=== PATIENT | male | born 1975 | race Caucasian/White ===

== ENCOUNTER 2024-10-31 07:19 | Observation (INO) ==
[2024-10-31] MEDS: MAGNESIUM SULFATE 2 GRAM 2 GM/50 ML BAG IV ONE (07:35)
[2024-10-31] MEDS: SODIUM CHLORIDE 0.9% 1,000 ML IV STA ×2 (07:36→11:34)
[2024-10-31 07:40] LABS: BASOPHILS % (AUTO) 0.4 %; EOSINOPHILS % (AUTO) 0.3 %; HCT - HEMATOCRIT 42.5 % (42.0-52.0); HGB - HEMOGLOBIN 14.3 g/dL (14.0-18.0); LYMPHOCYTES # (AUTO) 1.3 10^3/uL (1.5-3.5); LYMPHOCYTES % (AUTO) 11.6 %; MEAN CORPUSCULAR HEMOGLOBIN 29.9 pg (27.0-31.0); MEAN CORPUSCULAR HGB CONC 33.6 g/dL (32.0-36.0); MEAN CORPUSCULAR VOLUME 88.9 fL (80.0-94.0); MEAN PLATELET VOLUME 8.8 fL (7.4-11.4); MONOCYTES # (AUTO) 0.8 10^3/uL (0.0-1.0); MONOCYTES % (AUTO) 7.4 %; NEUTROPHILS # (AUTO) 8.7 10^3/uL (1.5-6.6); NEUTROPHILS % (AUTO) 79.9 %; PLT - PLATELET COUNT 296 10^3/uL (130-450); RED BLOOD COUNT 4.78 10^6/uL (4.70-6.10); RED CELL DISTRIBUTION WIDTH 14.3 % (12.0-15.0); WHITE BLOOD COUNT 10.8 x10^3/uL (4.8-10.8)
--- NOTE | 2024-10-31 07:43 | ED Physician Documentation ---
History of Present Illness Stated complaint Stated Complaint: ASTHMA Chief complaint Chief Complaint: Resp History obtained from History obtained from: Patient History of Present Illness Pain level max: 0 Pain level now: 0 Additonal information Additional information: 49 year old male with a history of asthma/COPD. Monserrat quit smoking last month. No fevers but has had a cough. States uses an inhaler. Received 2 Duoneb treatments, an albuterol treatment and 125mg solumedrol en route. was hypoxic initially with EMS states that he is feeling better after treatment but is still having increased work of breathing. Has had chills. No abdominal pain, nausea or vomiting. Review of Systems Constitutional Denies: Fever or Chills Ears, nose, mouth, and throat Denies: Ear pain or Neck pain Cardiovascular Denies: chest pain Respiratory Reports: Cough and Wheezing Gastrointestinal Denies: Abdominal pain, Nausea or Vomiting Musculoskeletal Denies: Back pain or Neck pain Integumentary/Breast Denies: Rash Allergic/Immunologic Reports: Wheezing Meds/Allgy Home Medications Ambulatory Orders Medication Instructions Recorded Confirmed cyclobenzaprine 10 mg tablet 10 mg PO TID PRN Spasms 08/11/13 10/31/24 hydrocodone 5 mg-acetaminophen 325 1 - 2 ea PO Q6H PRN Pain #15 tabs 08/11/13 10/31/24 mg tablet albuterol sulfate 90 mcg/actuation 1 - 2 puff inhalation Q4H PRN 10/31/24 10/31/24 aerosol inhaler shortness of breath or wheezing cetirizine 10 mg tablet 10 mg PO DAILY 10/31/24 10/31/24 fluticasone propionate 50 2 spray intranasal DAILY PRN 10/31/24 10/31/24 mcg/actuation nasal allergy symptoms spray,suspension Allergies Allergies Allergy/AdvReac Type Severity Reaction Status Date / Time codeine (Codeine) Allergy Intermediate Itching Verified 10/31/24 07:32 ibuprofen (From Motrin) Allergy Intermediate Hives Verified 10/31/24 07:32 PFS Medical History Medical History (Updated 10/31/24 @ 17:45 by Josh Pickering MD) Sinusitis Chronic back pain Asthma Surgical History Surgical History (Updated 10/13/24 @ 01:06 by ELISE Eddy) No pertinent past surgical history Social History Social History (Updated 10/13/24 @ 01:06 by Beatrice Merlos, ELISE) Smoking Status: Former smoker Living Condition: With family Relationship: Physical Activity: Walking Level: Independent Do you feel safe in your home environment?: Yes Suffered physical, verbal, emotional, or financial abuse?: No History of Abuse: No ETOH Use: None Frequency: Occasional Substance Use: cannabis (any form) POLST Patient has POLST: No Exam Constitutional normal general appearance appears unomfortable, increased work of breathing HENMT oral mucous membranes normal Neck/C-Spine trachea midline Respiratory wheezing and increased work of breathing Cardiovascular normal heart rate noted and regular rhythm noted Gastrointestinal abdomen soft to palpation, nontender to palpation and nondistended Back/Pelvis no thoracic spine tenderness and no lumbar spine tenderness Extremities no edema Psychiatry mental status grossly normal and oriented x3 Results Vitals Vitals: Vital Signs - 24 hr 10/31/24 07:29 10/31/24 08:00 10/31/24 08:23 Temperature 37.2 C Temperature Source Temporal Artery Scan Pulse Rate 130 H 128 H Respiratory Rate 20 20 Blood Pressure 122/53 L 117/55 L O2 Saturation 98 88 L Oxygen Delivery Method Nasal Cannula O2 Source Room air Room air If not protocol: Oxygen Flow, liters/minute 2 Pain Intensity 0 10/31/24 09:00 10/31/24 12:09 10/31/24 14:30 Temperature 36.0 C L 36.8 C Temperature Source Temporal Artery Scan Temporal Artery Scan Pulse Rate 124 H 114 H 109 H Respiratory Rate 24 20 20 Blood Pressure 101/57 L 104/60 O2 Saturation 95 95 Oxygen Delivery Method O2 Source Nasal cannula Room air If not protocol: Oxygen Flow, liters/minute 2 Pain Intensity Oxygen O2 Source Room air Labs Labs: Laboratory Tests 10/31/24 10/31/24 07:33 07:47 WBC 10.8 RBC 4.78 Hgb 14.3 Hct 42.5 MCV 88.9 MCH 29.9 MCHC 33.6 RDW 14.3 Plt Count 296 MPV 8.8 Neut # (Auto) 8.7 H Lymph # (Auto) 1.3 L [place] # (Auto) 0.8 Eos # (Auto) 0.0 Baso # (Auto) 0.0 Absolute Nucleated RBC 0.00 Nucleated RBC % 0.0 Sodium 137 Potassium 3.3 L Chloride 104 Carbon Dioxide 21 Anion Gap 12.0 BUN 18 Creatinine 0.9 Estimated GFR (MDRD) 90 Glucose 152 H Calcium 9.1 Phosphorus < 1.0 L* Magnesium 1.6 L Total Bilirubin 0.7 AST 16 ALT 24 Alkaline Phosphatase 78 Total Protein 6.6 Albumin 4.0 Globulin 2.6 Albumin/Globulin Ratio 1.5 Nasal Adenovirus (PCR) NOT DETECTED Nasal B. parapertussis DNA (PCR) NOT DETECTED Nasal Coronavir 229E PCR NOT DETECTED Nasal Coronavir HKU1 PCR NOT DETECTED Nasal Coronavir NL63 PCR NOT DETECTED Nasal Coronavir OC43 PCR NOT DETECTED Nasal Enterovir/Rhinovir PCR NOT DETECTED Nasal Influenza A H3 PCR DETECTED A Nasal Influenza B PCR NOT DETECTED Nasal Parainfluen 1 PCR NOT DETECTED Nasal Parainfluen 2 PCR NOT DETECTED Nasal Parainfluen 3 PCR NOT DETECTED Nasal Parainfluen 4 PCR NOT DETECTED Nasal RSV (PCR) NOT DETECTED Nasal B.pertussis DNA PCR NOT DETECTED Nasal C.pneumoniae (PCR) NOT DETECTED Ilia Human Metapneumo PCR NOT DETECTED Nasal M.pneumoniae (PCR) NOT DETECTED Nasal SARS-CoV-2 (PCR) NOT DETECTED Rads (name of study) cxr: Relevant Findings:: Final report received PD Medical Decision Making ED course Complexity details: reviewed results, re-evaluated patient, considered differ ential and d/w patient ED course: 49-year-old male with influenza A. He received approximately 5 different nebulizer treatments between the emergency department and EMS. Also received IV Solu-Medrol, IV magnesium and IV fluids. Also given IV potassium phosphate. Ptassium level is slightly low Phosphate level is undetectable. He is still requiring supplemental oxygen, still down to approximately 86 to 88% on room air even lying in bed. Will likely need observation overnight to ensure resolution of his COPD/asthma exacerbation. Will hold antibiotics at this time. Discussed the case with the hospitalist who accepts. This document was made in part using voice recognition software. While efforts are made to proofread this document, sound alike and grammatical errors may occur. Discharge Plan Discharge Patient Disposition: ED Place in Observation Condition: Stable Clinical Impression: Influenza A, Acute exacerbation of COPD with asthma, Hypoxia, Hypomagnesemia, Hypophosphatemia Interventions: ED Admission Assessment Last Done: 10/31/24 15:24
[2024-10-31 07:53] LABS: ALBUMIN/GLOBULIN RATIO 1.5 (1.0-2.2); ALKALINE PHOSPHATASE 78 IU/L (42-121); ALT ALANINE AMINOTRANSFERASE 24 IU/L (10-60); AST ASPARTATE AMINOTRANSFERASE 16 IU/L (10-42); BILIRUBIN,TOTAL 0.7 mg/dL (0.2-1.0); BUN - BLOOD UREA NITROGEN 18 mg/dL (6-20); CALCIUM 9.1 mg/dL (8.5-10.3); CARBON DIOXIDE - CO2 21 mmol/L (21-32); CHLORIDE 104 mmol/L (101-111); CREATININE 0.9 mg/dL (0.6-1.3); GFR - MDRD 90 (>89); GLUCOSE 152 mg/dL (74-104); MAGNESIUM 1.6 mg/dL (1.7-2.3); POTASSIUM 3.3 mmol/L (3.5-4.5); SODIUM 137 mmol/L (135-145); TOTAL PROTEIN 6.6 g/dL (6.4-8.9)
[2024-10-31 07:55] LABS: PHOSPHORUS < 1.0 mg/dL (2.5-5.0)
--- NOTE | 2024-10-31 08:33 | XRAY Report ---
PROCEDURE: XR Chest 1V INDICATIONS: cough, wheezing TECHNIQUE: One view of the chest was acquired. COMPARISON: 10/13/2024. FINDINGS: Surgical changes and devices: None. Lungs and pleura: No pleural effusions or pneumothorax. No consolidation. Mediastinum: Mediastinal contours appear normal. Heart size is normal. Bones and chest wall: No suspicious bony lesions. Overlying soft tissues appear unremarkable. IMPRESSION: No acute cardiopulmonary process. Reviewed by: Pedro Gonzales MD on 10/31/2024 8:32 AM PST Approved by: Pedro Gonzales MD on 10/31/2024 8:32 AM PST Station ID: [id number]
[2024-10-31 08:43] LABS: B. PARAPERTUSSIS- RESP PCR PAN NOT DETECTED; B. PERTUSSIS- RESP PCR PANEL NOT DETECTED; C. PNEUMONIAE- RESP PCR PANEL NOT DETECTED; CORONAVIRUS 229E-RESP PCR NOT DETECTED; CORONAVIRUS HKU1-RESP PCR NOT DETECTED; CORONAVIRUS NL63-RESP PCR NOT DETECTED; CORONAVIRUS OC43-RESP PCR NOT DETECTED; HUMAN METAPNEUMOVIRUS NOT DETECTED; INFLUENZA A H3- RESP PCR PANEL DETECTED; INFLUENZA B - RESP PCR PANEL NOT DETECTED; M. PNEUMONIAE- RESP PCR PANEL NOT DETECTED; PARAINFLUENZA VIRUS 1 NOT DETECTED; PARAINFLUENZA VIRUS 2 NOT DETECTED; PARAINFLUENZA VIRUS 4 NOT DETECTED; RHINOVIRUS/ENTEROVIRUS NOT DETECTED; RSV- RESP PCR PANEL NOT DETECTED; SARS-CoV-2 -RESP PCR PANEL NOT DETECTED
[2024-10-31] MEDS: ALBUTEROL NEB 2.5 MG/3 ML INH STA (08:57)
[2024-10-31] MEDS: POTASSIUM PHOSPHATE 15 MMOL in SODIUM CHLORIDE 0.9% 250 ML IV ONE (11:51)
--- NOTE | 2024-10-31 15:08 | HISTORY & PHYSICAL EXAMINATION ---
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 He reports presenting to the ER about a month ago with an asthma exacerbation, he was discharged with a course of Augmentin and prednisone. In the ER, chest x-ray was performed which showed no acute abnormality. He was noted to have potassium 3.3, phosphorus undetectably low, magnesium 1.6. He tested positive for influenza A. He was hypoxic in the ER, requiring 2 L O2 BNC, so hospitalist was contacted for possible admission for acute on chronic hypoxic respiratory failure Meds/Allgy Home Medications Ambulatory Orders Medication Instructions Recorded Confirmed cyclobenzaprine 10 mg tablet 10 mg PO TID PRN Spasms 08/11/13 10/13/24 hydrocodone 5 mg-acetaminophen 325 1 - 2 ea PO Q6H PRN Pain #15 tabs 08/11/13 10/13/24 mg tablet amoxicillin 875 mg-potassium 1 tab PO BID #20 tabs 10/13/24 clavulanate 125 mg tablet prednisone 10 mg tablet 10 mg PO DIRECTED #26 tabs 10/13/24 Allergies Allergies Allergy/AdvReac Type Severity Reaction Status Date / Time codeine (Codeine) Allergy Intermediate Itching Verified 10/31/24 07:32 ibuprofen (From Motrin) Allergy Intermediate Hives Verified 10/31/24 07:32 [facility] Medical History Medical History (Updated 10/31/24 @ 15:05 by Slick Haney DNP) Sinusitis Chronic back pain Asthma Surgical History Surgical History (Updated 10/13/24 @ 01:06 by ELISE Eddy) No pertinent past surgical history Social History Social History (Updated 10/13/24 @ 01:06 by ELISE Eddy) Smoking Status: Current every day smoker Living Condition: With family Relationship: Physical Activity: Walking Level: Independent Do you feel safe in your home environment?: Yes Suffered physical, verbal, emotional, or financial abuse?: No History of Abuse: No ETOH Use: None Frequency: Occasional Substance Use: denies use POLST Patient has POLST: No Review of Systems Status of ROS: 10 or more systems reviewed and unremarkable except as noted in history and below Constitutional Reports: Fever, Chills and Malaise Cardiovascular Reports: shortness of breath with exertion; Denies: Irregular heart rate or chest pain Respiratory Reports: Shortness of breath, Cough and Sputum production Gastrointestinal Denies: Abdominal pain or Abdominal distention Neurological Reports: General weakness Exam Constitutional Middle-aged male in obvious discomfort from viral illness. Poor hygiene, possibly related to vocation HENMT normocephalic and head/scalp atraumatic Eyes PERRL Neck/C-Spine visual inspection normal Lymph no lymphadenopathy noted Chest inspection of chest normal Respiratory breath sounds equal bilaterally Rhonchorous breath sounds, coughing with deep inspiration Cardiovascular normal heart rate noted Gastrointestinal abdomen normal to inspection Extremities normal to inspection Neurology GCS 15 Psychiatry Mental Status Exam documented in the separate MSE Skin skin color normal Conclusion/Plan Problem List (1) Acute on chronic respiratory failure with hypoxia: Plan: Secondary to combination of influenza, asthma, presumed COPD Received 125 mg Solu-Medrol per EMS New orders: DuoNebs RT 4 times daily as needed Prednisone 40 mg daily starting tomorrow O2 as needed (2) Influenza A: Plan: Tested positive for influenza A in the ER I have ordered a course of Tamiflu 75 mg twice daily I have ordered as needed Tylenol P.o. 650 mg every 6 hours for fevers and malaise (3) Asthma: Plan: This is managed at home with as needed albuterol This is his second presentation for respiratory failure this year I have added a Pulmicort nebulizer twice daily DuoNeb RT 4 times daily as needed Will need to discharge on at least an ICS if not an ICS and a LABA (4) Chronic back pain: Plan: He takes [place] as needed at home for back pain I have ordered [place] as needed here Tylenol as needed Plan Placed in observation Full code He names his mother is his surrogate decision-maker He is , but currently Lab Results Lab results reviewed: Yes 10/31/24 07:33 10/31/24 07:33 Core Measures Anticipated LOS I expect patient to be DC'd or transferred within 96 hours.: Yes DVT/VTE - Prophylaxis VTE/DVT Prophylaxis med ordered at admit?: Yes
[2024-10-31] MEDS ORDERED: ONDANSETRON 4 MG/2 ML VIAL IVP PRN (15:22)
[2024-10-31] MEDS ORDERED: ONDANSETRON ODT 4 MG TABLET TL PRN (15:22)
[2024-10-31] MEDS ORDERED: CYCLOBENZAPRINE 10 MG TABLET PO PRN (15:27)
[2024-10-31] MEDS: SODIUM CHLORIDE FLUSH 0.9% 10 ML SYRINGE IVP PRN (15:33)
--- NOTE | 2024-10-31 15:33 | PHARMACY PROGRESS NOTE ---
Best Possible Medication History Admit Date and Time: 10/31/24 [id number] Home Medications Medication Instructions Recorded Confirmed Type cyclobenzaprine 10 mg tablet 10 mg PO TID PRN Spasms 08/11/13 10/31/24 History hydrocodone 5 mg-acetaminophen 325 1 - 2 ea PO Q6H PRN Pain #15 tabs 08/11/13 10/31/24 Rx mg tablet albuterol sulfate 90 mcg/actuation 1 - 2 puff inhalation Q4H PRN 10/31/24 10/31/24 History aerosol inhaler shortness of breath or wheezing cetirizine 10 mg tablet 10 mg PO DAILY 10/31/24 10/31/24 History fluticasone propionate 50 2 spray intranasal DAILY PRN 10/31/24 10/31/24 History mcg/actuation nasal allergy symptoms spray,suspension Processed by: Pharmacy Medications reviewed in ED?: No Medication History completed: Yes Secondary Source(s): Pharmacy records and Insurance records [facility] Statement: As the person ultimately responsible for medication therapy, providers are able to order a medication from an existing home medication list in [facility] via the "Reconcile Routine" prior to Confirmation of that medication by wind farm support specialist. Such practice is discouraged except when the physician, in their clinical judgment, deems that a medical need exists for a medication without regard to previous use.
[2024-10-31] MEDS: ACETAMINOPHEN 325 MG TABLET PO PRN (15:41)
[2024-10-31] MEDS: IPRATROPIUM/ALBUTEROL 3 ML NEB INH PRN (16:19)
[2024-10-31] MEDS: BUDESONIDE 0.5 MG/2 ML NEB INH SCH (19:55)
[2024-10-31] MEDS: HYDROcod/ACETAM 5/325 MG TABLET PO PRN (20:24)
[2024-10-31] MEDS: OSELTAMIVIR 75 MG CAPSULE PO SCH (20:25)
[2024-10-31] MEDS: SODIUM CHLORIDE FLUSH 0.9% 10 ML SYRINGE IVP SCH (20:25)
[2024-11-01 05:56] LABS: BASOPHILS % (AUTO) 0.1 %; HCT - HEMATOCRIT 39.1 % (42.0-52.0); HGB - HEMOGLOBIN 13.1 g/dL (14.0-18.0); LYMPHOCYTES # (AUTO) 1.1 10^3/uL (1.5-3.5); LYMPHOCYTES % (AUTO) 12.1 %; MEAN CORPUSCULAR HGB CONC 33.5 g/dL (32.0-36.0); MEAN CORPUSCULAR VOLUME 89.7 fL (80.0-94.0); MEAN PLATELET VOLUME 8.6 fL (7.4-11.4); MONOCYTES # (AUTO) 0.8 10^3/uL (0.0-1.0); MONOCYTES % (AUTO) 8.9 %; NEUTROPHILS # (AUTO) 7.2 10^3/uL (1.5-6.6); NEUTROPHILS % (AUTO) 78.5 %; PLT - PLATELET COUNT 267 10^3/uL (130-450); RED BLOOD COUNT 4.36 10^6/uL (4.70-6.10); RED CELL DISTRIBUTION WIDTH 14.7 % (12.0-15.0); WHITE BLOOD COUNT 9.2 x10^3/uL (4.8-10.8)
[2024-11-01 06:10] LABS: MAGNESIUM 2.2 mg/dL (1.7-2.3)
[2024-11-01 06:16] LABS: CREATININE 0.7 mg/dL (0.6-1.3); PHOSPHORUS 3.3 mg/dL (2.5-5.0)
[2024-11-01 08:29] VITALS: TEMP 98.4
[2024-11-01] MEDS: predniSONE 20 MG TABLET PO SCH (08:31)
[2024-11-01] MEDS: ENOXAPARIN 40 MG/0.4 ML SYRINGE SUBQ SCH (08:32)
[2024-11-01 11:24] VITALS: BP 122/76; O2SAT 98
--- NOTE | 2024-11-01 11:45 | Discharge Summary ---
Discharge Summary Admit Date: 10/31/24 Discharge Date: 11/01/24 Discharging Provider: Slick Haney NP Primary Care Provider: Hussain Wisdom Code Status: Attempt Resuscitation DIAGNOSES Admission Diagnoses: Acute on chronic respiratory failure with hypoxia Influenza A Asthma Chronic back pain Discharge Diagnoses with Status of Each Condition: Acute and chronic respiratory failure with hypoxianow on room air, discharging on steroid Influenza Aimproving, discharging on Tamiflu Asthmachronic, worsening. Escalating inhaler therapy Chronic back painchronic HPI History of Present Illness: 49-year-old [employer] with history of asthma on as needed albuterol as well as smoking history, stopped smoking a month ago presents with shortness of breath, malaise, fever, chills. He reports presenting to the ER about a month ago with an asthma exacerbation, he was discharged with a course of Augmentin and prednisone. In the ER, chest x-ray was performed which showed no acute abnormality. He was noted to have potassium 3.3, phosphorus undetectably low, magnesium 1.6. He tested positive for influenza A. He was hypoxic in the ER, requiring 2 L O2 BNC, so hospitalist was contacted for possible admission for acute on chronic hypoxic respiratory failure HOSPITAL COURSE Hospital Course: He was placed in observation status and started on steroid burst. His electrolytes were repleted. Today, he is on room air. He underwent oxygen desat study and is clear to discharge without home oxygen. I am discharging him on a prednisone burst, as well as inhaled steroid and LABA and a short course of Tamiflu. He has been instructed to follow-up with primary care regarding further management of his asthma ALLERGIES Allergies Allergy/AdvReac Type Severity Reaction Status Date / Time codeine (Codeine) Allergy Intermediate Itching Verified 10/31/24 07:32 ibuprofen (From Motrin) Allergy Intermediate Hives Verified 10/31/24 07:32 MEDICATIONS Ambulatory Orders Medication Instructions Recorded Confirmed cyclobenzaprine 10 mg tablet 10 mg PO TID PRN Spasms 08/11/13 10/31/24 hydrocodone 5 mg-acetaminophen 325 1 - 2 ea PO Q6H PRN Pain #15 tabs 08/11/13 10/31/24 mg tablet albuterol sulfate 90 mcg/actuation 1 - 2 puff inhalation Q4H PRN 10/31/24 10/31/24 aerosol inhaler shortness of breath or wheezing cetirizine 10 mg tablet 10 mg PO DAILY 10/31/24 10/31/24 fluticasone propionate 50 2 spray intranasal DAILY PRN 10/31/24 10/31/24 mcg/actuation nasal allergy symptoms spray,suspension budesonide-formoterol HFA 80 1 inh inhalation BID #10.2 grams 11/01/24 mcg-4.5 mcg/actuation aerosol inhaler (Symbicort) oseltamivir 75 mg capsule 75 mg PO BID 5 days #10 caps 11/01/24 prednisone 20 mg tablet 40 mg (2 x 20 mg) PO DAILYWM 3 11/01/24 days #6 tabs PHYSICAL EXAM AT DISCHARGE General Appearance: positive No acute distress and Alert Eyes Bilateral: positive Normal inspection and PERRL ENT: positive ENT inspection nml Neck: positive Nml inspection Respiratory: positive Chest non-tender and Rhonchi Cardiovascular: positive Regular rate & rhythm Abdomen: positive Non-tender Skin: positive Color nml Extremities: positive Non-tender Neurologic/Psychiatric: positive Oriented x3 LABS 11/01/24 05:45 11/01/24 05:45 FOLLOW UP Follow Up: With PCP TIME SPENT Time Spent in Discharge (Minutes): 35 Discharge Plan Discharge Patient Disposition: Home, Self Care Condition: Stable Medically Cleared Date:: 11/01/24 Prescriptions: New oseltamivir 75 mg Capsule 75 mg PO BID 5 Days Qty: 10 0RF prednisone 20 mg Tablet 40 mg PO DAILYWM 3 Days Qty: 6 0RF budesonide-formoterol [Symbicort] 80-4.5 mcg/actuation HFA aerosol inhaler 1 inh inhalation BID Qty: 10.2 2RF Continued cyclobenzaprine 10 MG tablet 10 mg PO TID PRN (Reason: Spasms) hydrocodone-acetaminophen 1 EACH tablet 1 - 2 ea PO Q6H PRN (Reason: Pain) Qty: 15 0RF fluticasone propionate 50 mcg/actuation spray,suspension 2 spray INTRANASAL DAILY PRN (Reason: allergy symptoms) cetirizine 10 mg tablet 10 mg PO DAILY albuterol sulfate 90 mcg/actuation HFA aerosol inhaler 1 - 2 puff INHALATION Q4H PRN (Reason: shortness of breath or wheezing) Diet: Regular Health Concerns: You came into the hospital with respiratory failure and were found to be positive for influenza which has triggered your asthma. You were brought into the hospital in observation status and started on high-dose steroids as well as Tamiflu. Today, you are off oxygen, confirmed by RT. I am sending you home with another few days of's prednisone that I would like for you to take until the bottle is empty. I am starting you on a new inhaler that I would like for you to take twice a day until otherwise directed by your primary care provider. I am also prescribing you a course of Tamiflu to help with your influenza symptoms. Please follow-up with your primary care provider within the next 1 to 2 weeks, and report any worsening symptoms to healthcare provider Print Language: Latvian Patient Instructions: Inhaler Steroid Steps Stand Alone Forms: PCP List
== END 2024-11-01 13:55 | disposition home or self-care (01) ==
LOC: ED 07:19 → MS2 07:19
PROVIDERS: ADMIT Nurse Practitioner Acute Care; ATTEND Nurse Practitioner Acute Care
DX: E83.42 Hypomagnesemia; Z87.891 Personal history of nicotine dependence; M54.9 Dorsalgia, unspecified; E83.39 Other disorders of phosphorus metabolism; J10.1 Influenza due to other identified influenza virus with other respiratory manifestations; J44.1 Chronic obstructive pulmonary disease with (acute) exacerbation; G89.29 Other chronic pain; J96.21 Acute and chronic respiratory failure with hypoxia